=== PATIENT | female | born 1950 | race Caucasian/White ===

== ENCOUNTER 2017-11-29 11:14 | Emergency (ER) | payer MEDICARE, OTHER ==
[~2017-11-29 11:14] MED LIST: Gadobenate Dimeglumine 529 MG/1 ML (20ML VIAL) ONE
[2017-11-29 12:24] LABS: #Basophils 0.1 thou/uL (0.0-0.2); #Eosinphils 0.2 thou/uL (0.0-0.7); #Lymphocytes 2.7 thou/uL (1.20-3.40); #Monocytes 0.5 thou/uL (0.11-0.59); #Neutrophils 6.9 thou/uL (1.40-6.50); %Basophils 0.8 % (0.0-1.0); %Eosinophils 1.9 % (0.0-10.0); %Monocytes 5.1 % (0.0-10.0); %Neutrophils 66.3 % (42.0-75.0); Hemoglobin 13.4 g/dL (12.0-16.0); Mean Corpuscular HGB CONC 31.8 g/dL (32.0-36.0); Mean Corpuscular Hemoglobin 27.9 pg (27.0-31.0); Mean Corpuscular Volume 87.9 fl (81.0-99.0); Mean Platelet Volume 7.3 fL (7.4-10.4); Platelet Count 319 thou/uL (130-400); RBC Distribution Width 13.7 % (11.5-14.5); Red Blood Cell (RBC) Count 4.79 mill/uL (4.20-5.40); White Blood Cell (WBC) Count 10.4 thou/uL (4.8-10.8)
[2017-11-29 12:36] LABS: ALT (SGPT) 21 U/L (8-55); AST (SGOT) 17 U/L (5-34); Albumin 3.8 g/dL (3.4-4.8); Alkaline Phosphatase 93 U/L (40-150); Anion Gap 13 mmol/L (10-20); BUN (Urea Nitrogen) 13 mg/dL (9.8-20.1); Bilirubin, Total 0.3 mg/dL (0.2-1.2); Calc. Creatinine Clearance 0 mL/min (70-130); Carbon Dioxide 28 mmol/L (23-31); Chloride 104 mmol/L (98-107); Estimated GFR-MDRD Greater than 90; Globulin 3.5 g/dL (2.4-3.5); Glucose 90 mg/dL (80-115); Potassium 4.3 mmol/L (3.5-5.1); Protein, Total 7.3 g/dL (6.0-8.3); Sodium 141 mmol/L (136-145)
[2017-11-29 12:37] LABS: CKMB 1.7 ng/mL (0-6.6); Troponin I 0.016 ng/mL (< 0.028)
[2017-11-29] MEDS ORDERED: Lorazepam 1 MG TAB ONE (12:44)
--- NOTE | 2017-11-29 15:39 | MRI ---
BRAIN MRI WITH AND WITHOUT CONTRAST: Date: 11/29/17 COMPARISON: 01/05/15. HISTORY: Dizzy, headache. TECHNIQUE: Multiplanar, multisequence MR imaging of the brain obtained with and without contrast using an internal control manager al auditory canal protocol. FINDINGS: The diffusion-weighted imaging demonstrates no evidence for acute infarction. Regional bone marrow signal intensity appears within normal limits. Thin section T2-weighted imaging at the level of the skull base demonstrates no mass in the region of the cerebellopontine angle on either side. There is normal T2 signal intensity within the internal a uditory canal, cochlea, vestibule, and semicircular canals bilaterally. Arterial flow-voids at axial level of skull base appear grossly unremarkable on the T2-weighted imagi ng. There is mild patchy increased FLAIR signal within the luis fernando suggesting a degree of small vessel disea se. The postcontrast imaging demonstrates no abnormal enhancement at the level of the CP angle, IAC, coch ash, vestibule, or semicircular canals on either side. Whole brain postcontrast imaging is unremarkable. IMPRESSION: No acute findings. POS: FRANSISCO
== END 2017-11-29 16:28 | disposition home or self-care (01) ==
LOC: SCSER 11:14
DX: R11.2 Nausea with vomiting, unspecified (principal); R20.2 Paresthesia of skin; R61 Generalized hyperhidrosis; K21.9 Gastro-esophageal reflux disease without esophagitis; F32.9 Major depressive disorder, single episode, unspecified
CPT/HCPCS: 36415; 70553; 80053; 82553; 84484; 85025; 93005

== ENCOUNTER 2019-08-31 08:04 | Outpatient (CLI) | payer MEDICARE ==
--- NOTE | 2019-09-16 13:04 | MMO ---
Bilateral MAMMO Bilat Screen [facility]. CLINICAL HISTORY: Patient is 68 years old and is seen for screening. The patient has the following family history of breast cancer: mother, at age 69. The patient has no personal history of cancer. VIEWS: The views performed were: bilateral craniocaudal with tomosynthesis and bilateral mediolateral oblique with tomosynthesis. FILMS COMPARED: The present examination has been compared to prior imaging studies performed at [facility] on 03/12/2012, 03/13/2013 and 04/12/2014, and at [facility] on 07/09/2016. This study has been interpreted with the assistance of computer-aided detection. MAMMOGRAM FINDINGS: There are scattered fibroglandular densities. There are stable benign appearing calcifications seen in the right breast. There are no suspicious masses, suspicious calcifications, or new areas of architectural distortion. IMPRESSION: THERE IS NO MAMMOGRAPHIC EVIDENCE OF MALIGNANCY. A ROUTINE FOLLOW-UP MAMMOGRAM IN 1 YEAR IS RECOMMENDED. THE RESULTS OF THIS EXAM WERE SENT TO THE PATIENT. ACR BI-RADS Category 2 - Benign finding MAMMOGRAPHY NOTE: 1. A negative mammogram report should not delay a biopsy if a dominant of clinically suspicious mass is present. 2. Approximately 10% to 15% of breast cancers are not detected by mammography. 3. Adenosis and dense breasts may obscure an underlying neoplasm. Reported by: MINGO MORA MD Electonically Signed: [id number]
== END 2019-08-31 08:05 | disposition home or self-care (01) ==
LOC: BICMAMMO 08:04
PROVIDERS: ATTEND Internal Medicine
DX: Z12.31 Encounter for screening mammogram for malignant neoplasm of breast (principal); Z80.3 Family history of malignant neoplasm of breast
CPT/HCPCS: 77063; 77067

== ENCOUNTER 2021-10-26 13:17 | Outpatient (CLI) | payer MEDICARE | END 2021-10-26 13:18 | disposition home or self-care (01) | LOC: BICRAD 13:17 | PROVIDERS: ATTEND Internal Medicine | DX: J40 Bronchitis, not specified as acute or chronic (principal) | CPT/HCPCS: 71046 ==

== ENCOUNTER 2023-09-24 10:17 | Outpatient (CLI) | payer MEDICARE, OTHER | END 2023-09-24 10:18 | disposition home or self-care (01) | LOC: BICRAD 10:17 | PROVIDERS: ATTEND Family Medicine | DX: M25.551 Pain in right hip (principal); M16.11 Unilateral primary osteoarthritis, right hip | CPT/HCPCS: 36415; 80053; 80061; 84443; 85025 ==